=== PATIENT | female | born 1990 | race Caucasian/White ===

== ENCOUNTER 2018-01-02 20:06 | Emergency (ER) | payer BC, OTHER ==
[2018-01-02 20:24] VITALS: O2SAT 98
[2018-01-02] MEDS ORDERED: Sodium Chloride 0.9% 1000 ML 1,000 ML IV STA (21:20)
[2018-01-02 21:40] LABS: Hematocrit 28.8 % (35-47); Hemoglobin 9.4 gm/dl (12.0-16.0); Mean Cell Volume 89.4 fl (78-100); Mean Corpuscular Hgb Concent. 32.6 g/dl (32-36); Mean Platelet Volume 12.4 fl (6-9.5); Platelet Count 191 K/mm3 (150-450); Red Blood Count 3.22 M/mm3 (4.1-5.4); Red Cell Distribution Width 12.5 % (11.5-14.0)
[2018-01-02 21:43] LABS: Mean Corpuscular Hemoglobin 29.1 pg (26-32)
--- NOTE | 2018-01-02 21:43 | ERPHSYRPT ---
- History of Present Illness Time Seen by Provider: 01/02/18 21:40 Historian: patient Exam Limitations: no limitations Patient Subjective Stated Complaint: Left sided Abdominal pain Triage Nursing Assessment: Patient ambulated into ER and transferred self to bed. Patient A+O x3. Patient complains of left sided lower abdominal pain radiating to left side of back. Patient states pain is 9/10. Patient states she thought she was constipated and took a suppository with no relief. Patient's abdomen soft and round with positive BS. Physician History: 27-year-old white female arrives with complaint of sharp left-sided abdominal pain radiating to her left flank which occurred at 6:30 and has now resolved. Patient denies any nausea vomiting diarrhea she states she is not having any urinary symptoms. She does state that she thought that she was constipated and used suppository but this does not seem to been the problem. Past medical history includes a goiter. Past surgical history is negative. Social history patient denies tobacco alcohol or illicit drug use. Timing/Duration: today Activities at Onset: none Quality: sharpness Abdominal Pain Onset Location: [facility] Pain Radiation: flank (left flank) Severity of Pain-Max: moderate Severity of Pain-Current: none Associated Symptoms: No back, No chest pain, No diaphoresis, No diarrhea, No fever/chills, No fatigue, No headache, No heartburn, No loss of appetite, No nausea, No neck pain, No rash, No shortness of breath, No syncope, No vomiting, No weakness Previous symptoms: no prior history Allergies/Adverse Reactions: No Known Drug Allergies Allergy (Verified 01/02/18 20:24) Home Medications: Cetirizine HCl [Zyrtec] 1 tab PO DAILY PRN 01/02/18 [History] Hx Tetanus, Diphtheria Vaccination/Date Given: Yes Hx Influenza Vaccination/Date Given: No Hx Pneumococcal Vaccination/Date Given: No Immunizations Up to Date: Yes - Review of Systems Constitutional: No Fever, No Chills Eyes: No Symptoms Ears, Nose, & Throat: No Symptoms Respiratory: No Cough, No Dyspnea Cardiac: No Chest Pain, No Edema, No Syncope Abdominal/Gastrointestinal: Abdominal Pain, No Nausea, No Vomiting, No Diarrhea Genitourinary Symptoms: Flank Pain (le left flank painft flank pain), No Dysuria , No Frequency, No Hematuria, No Menorrhagia, No , No Vaginal Bleeding , No Vaginal Discharge, No Vaginal Itching Musculoskeletal: No Back Pain, No Neck Pain Skin: No Rash Neurological: No Dizziness, No Focal Weakness, No Sensory Changes Psychological: No Symptoms Endocrine: No Symptoms All Other Systems: Reviewed and Negative - Past Medical History Pertinent Past Medical History: Yes ENT History: Other (allergies) Endocrine Medical History: Other Other Medical History: Goiters - Past Surgical History Past Surgical History: No - Social History Smoking Status: Never smoker Exposure to second hand smoke: No Drug Use: none Patient Lives Alone: Yes - Female History Hx Last Menstrual Period: [place] no period in two weeks Hx Now: No - Nursing Vital Signs Nursing Vital Signs: Initial Vital Signs Temperature 97.8 F 01/02/18 20:12 Pulse Rate 76 01/02/18 20:12 Respiratory Rate 18 01/02/18 20:12 Blood Pressure 144/96 01/02/18 20:12 O2 Sat by Pulse Oximetry 98 01/02/18 20:12 Pain Scale Pain Intensity 9 - Physical Exam General Appearance: no apparent distress, alert Eye Exam: PERRL/EOMI, eyes nml inspection Ears, Nose, Throat Exam: normal ENT inspection, pharynx normal, moist mucous membranes Neck Exam: normal inspection, non-tender, supple, full range of motion Respiratory Exam: normal breath sounds, lungs clear, No respiratory distress Cardiovascular Exam: regular rate/rhythm, normal heart sounds Gastrointestinal/Abdomen Exam: soft, No tenderness, No mass Back Exam: normal inspection, normal range of motion, No CVA tenderness, No vertebral tenderness Extremity Exam: normal inspection, normal range of motion, pelvis stable Neurologic Exam: alert, oriented x 3, cooperative, operations systems specialist II-XII nml as tested, normal mood/affect, nml cerebellar function, sensation nml, No motor deficits Skin Exam: normal color, warm, dry SpO2 Interpretation: normal (98%) SpO2: 98 Oxygen Delivery: Room Air Ordered Tests: Active Orders 24 hr Category Date Time Status IV Insertion STAT Care 01/02/18 21:20 Active AMYLASE Stat Lab 01/02/18 21:35 Completed CBC W DIFF Stat Lab 01/02/18 21:35 Completed CMP Stat Lab 01/02/18 21:35 Completed CULTURE,URINE Stat Lab 01/02/18 21:55 Received HCG QUALITATIVE,SERUM Stat Lab 01/02/18 21:35 Completed LIPASE Stat Lab 01/02/18 21:35 Completed Manual Differential NC Stat Lab 01/02/18 21:35 Completed UA W/RFX UR CULTURE Stat Lab 01/02/18 21:55 Completed Medication Summary Discontinued Medications Generic Name Dose Route Start Last Admin Trade Name Cornelia PRN Reason Stop Dose Admin Sodium Chloride 1,000 mls @ 999 mls/hr 01/02/18 21:20 01/02/18 22:17 Sodium Chloride 0.9% 1000 Ml IV 01/02/18 22:20 999 mls/hr .Q1H1M STA Administration Sodium Chloride Confirm 01/02/18 22:01 Sodium Chloride 0.9% 1000 Ml Administered 01/02/18 22:02 Dose 1,000 mls @ ud .ROUTE .STK-MED ONE Sodium Chloride Confirm 01/02/18 22:08 Sodium Chloride 0.9% 1000 Ml Administered 01/02/18 22:09 Dose 1,000 mls @ ud .ROUTE .STK-MED ONE Lab/Rad Data: Laboratory Result Diagrams 01/02/18 21:35 01/02/18 21:35 Laboratory Results 01/02/18 01/02/18 01/02/18 Range/Units 21:55 21:35 21:35 WBC (4.0-10.5) K/mm3 RBC (4.1-5.4) M/mm3 Hgb (12.0-16.0) gm/dl Hct (35-47) % MCV (78-100) fl MCH (26-32) pg MCHC (32-36) g/dl RDW (11.5-14.0) % Plt Count (150-450) K/mm3 MPV (6-9.5) fl Segmented Neutrophils (36.0-66.0) % Lymphocytes (Manual) (24-44) % Monocytes (Manual) (0.0-12.0) % Platelet Estimate (NORMAL) RBC Morphology Sodium 136 L (137-145) mmol/L Potassium 4.2 (3.5-5.1) mmol/L Chloride 100 (98-107) mmol/L Carbon Dioxide 28 (22-30) mmol/L Anion Gap 12.0 (5-15) MEQ/L BUN 16 (7-17) mg/dL Creatinine 0.66 (0.52-1.04) mg/dL Estimated GFR > 60.0 ML/MIN Glucose 97 (74-106) mg/dL Calcium 9.7 (8.4-10.2) mg/dL Total Bilirubin 0.20 (0.2-1.3) mg/dL AST 22 (14-36) U/L ALT 15 (0-35) U/L Alkaline Phosphatase 66 (38-126) U/L Serum Total Protein 7.0 (6.3-8.2) g/dL Albumin 4.4 (3.5-5.0) g/dL Amylase 59 (30-110) U/L Lipase 78 (23-300) U/L Serum , Qual NEGATIVE (Negative) Urine Color YELLOW (YELLOW) Urine Appearance CLEAR (CLEAR) Urine pH 5.0 (5-6) Ur Specific [place] 1.015 (1.005-1.025) Urine Protein NEGATIVE (Negative) Urine Ketones NEGATIVE (NEGATIVE) Urine Blood 250 (0-5) Jayro/ul Urine Nitrite NEGATIVE (NEGATIVE) Urine Bilirubin NEGATIVE (NEGATIVE) Urine Urobilinogen NORMAL (0-1) mg/dL Ur Leukocyte Esterase TRACE (NEGATIVE) Urine WBC (Auto) 0-2 (0-5) /HPF Urine RBC (Auto) 16-25 (0-2) /HPF U Epithel Cells (Auto) FEW (FEW) /HPF Urine Bacteria (Auto) FEW (NEGATIVE) /HPF Urine Mucus (Auto) SLIGHT (NEGATIVE) /HPF Urine Culture Reflexed YES (NO) Urine Glucose NEGATIVE (NEGATIVE) mg/dL 01/02/ Range/Units 21:35 WBC 8.0 (4.0-10.5) K/mm3 RBC 3.22 L (4.1-5.4) M/mm3 Hgb 9.4 L (12.0-16.0) gm/dl Hct 28.8 L (35-47) % MCV 89.4 (78-100) fl MCH 29.1 (26-32) pg MCHC 32.6 (32-36) g/dl RDW 12.5 (11.5-14.0) % Plt Count 191 (150-450) K/mm3 MPV 12.4 H (6-9.5) fl Segmented Neutrophils 81 H (36.0-66.0) % Lymphocytes (Manual) 15 L (24-44) % Monocytes (Manual) 4 (0.0-12.0) % Platelet Estimate NORMAL (NORMAL) RBC Morphology NORMAL Sodium (137-145) mmol/L Potassium (3.5-5.1) mmol/L Chloride (98-107) mmol/L Carbon Dioxide (22-30) mmol/L Anion Gap (5-15) MEQ/L BUN (7-17) mg/dL Creatinine (0.52-1.04) mg/dL Estimated GFR ML/MIN Glucose (74-106) mg/dL Calcium (8.4-10.2) mg/dL Total Bilirubin (0.2-1.3) mg/dL AST (14-36) U/L ALT (0-35) U/L Alkaline Phosphatase (38-126) U/L Serum Total Protein (6.3-8.2) g/dL Albumin (3.5-5.0) g/dL Amylase (30-110) U/L Lipase (23-300) U/L Serum , Qual (Negative) Urine Color (YELLOW) Urine Appearance (CLEAR) Urine pH (5-6) Ur Specific [place] (1.005-1.025) Urine Protein (Negative) Urine Ketones (NEGATIVE) Urine Blood (0-5) Jayro/ul Urine Nitrite (NEGATIVE) Urine Bilirubin (NEGATIVE) Urine Urobilinogen (0-1) mg/dL Ur Leukocyte Esterase (NEGATIVE) Urine WBC (Auto) (0-5) /HPF Urine RBC (Auto) (0-2) /HPF U Epithel Cells (Auto) (FEW) /HPF Urine Bacteria (Auto) (NEGATIVE) /HPF Urine Mucus (Auto) (NEGATIVE) /HPF Urine Culture Reflexed (NO) Urine Glucose (NEGATIVE) mg/dL - Progress Progress: improved Progress Note: 01/02/18 23:57 27-year-old white female who arrives with complaint that she had sharp left- sided abdominal pain radiating to her left flank symptoms since just prior to arrival. Patient has been completely pain-free since arrival she has normal labs with the exception of 16-25 red cells per high-power field in her urine. She has received 1 L of normal saline. Patient with normal examination since arrival. Will go ahead and release patient. I have informed her of the small amount of blood in her urine I do not feel at this time that a CT of the abdomen is warranted Will discharge patient plenty of fluids Tylenol every 4 hours as needed for pain. Patient is to follow-up with her family doctor return if symptoms are recurrent. . - Departure Time of Disposition: 23:58 Departure Disposition: Home Clinical Impression: Left sided abdominal pain, microcytic hematuria Condition: Fair Critical Care Time: No Referrals: THERESE KAM [Primary Care Provider] - Additional Instructions: Return home. Plenty of fluids. Tylenol every 4 hours or Motrin every 6 hours as needed for pain. Follow-up with your family doctor (you will need yourr urine rechecked to ensure hematuria has cleared). Return or follow-up with your family DrCaprice if problems. Return for acute distress or for severe symptoms.
[2018-01-02] MEDS ORDERED: Sodium Chloride 0.9% 1000 ML 1,000 ML ONE (22:01)
[2018-01-02 22:03] LABS: ALBUMIN 4.4 g/dL (3.5-5.0); ALKALINE PHOSPHATASE 66 U/L (38-126); AMYLASE 59 U/L (30-110); BLOOD UREA NITROGEN 16 mg/dL (7-17); CHLORIDE 100 mmol/L (98-107); Calcium 9.7 mg/dL (8.4-10.2); Carbon Dioxide 28 mmol/L (22-30); Creatinine 1 0.66 mg/dL (0.52-1.04); Glucose 97 mg/dL (74-106); LIPASE 78 U/L (23-300); Potassium 4.2 mmol/L (3.5-5.1); SGOT/AST 22 U/L (14-36); SGPT/ALT 15 U/L (0-35); SODIUM 136 mmol/L (137-145)
[2018-01-02 22:06] LABS: Lymphocytes 15 % (24-44); Monocyte 4 % (0.0-12.0); Neutrophils 81 % (36.0-66.0); Platelet Estimate NORMAL (NORMAL); Total Cells Counted 100
[2018-01-02] MEDS ORDERED: Sodium Chloride 0.9% 1000 ML 0 ML ONE (22:08)
[2018-01-02 22:16] LABS: Appearance CLEAR (CLEAR); Bilirubin NEGATIVE (NEGATIVE); Blood 250 Ery/ul (0-5); Glucose NEGATIVE (NEGATIVE); Ketones NEGATIVE (NEGATIVE); Leukocyte Esterase TRACE (NEGATIVE); Nitrite NEGATIVE (NEGATIVE); Protein,Urine Dip NEGATIVE (Negative); Specific Gravity 1.015 (1.005-1.025); Urobilinogen NORMAL mg/dL (0-1)
[2018-01-03 00:19] VITALS: BP 129/83; PULSE 69
== END 2018-01-03 00:20 | disposition home or self-care (01) ==
LOC: ED 20:06
DX: R10.12 Left upper quadrant pain (principal); R31.9 Hematuria, unspecified
CPT/HCPCS: 36415; 80053; 81001; 82150; 83690; 84703; 85025; 87086; 96360; 99284

== ENCOUNTER 2020-10-21 06:25 | Day surgery (SDC) | payer OTHER ==
[2020-10-21] MEDS ORDERED: Lactated Ringers 1,000 ML IV SCH (06:30)
[2020-10-21] MEDS ORDERED: ASTRINGYN 8 GM TP ONE (06:57)
[2020-10-21] MEDS ORDERED: XYLOCAINE 1%/Epi 1:100000 MDV 20 ML ONE (07:40)
[2020-10-21] MEDS ORDERED: Lactated Ringers 1,000 ML IV ONE (07:45)
[2020-10-21] MEDS ORDERED: SUBLIMAZE 100 MCG/2 ML ONE (08:19)
[2020-10-21] MEDS ORDERED: Decadron 4 MG INJ ONE (08:19)
[2020-10-21] MEDS ORDERED: Versed 2 MG/2 ML Injection ONE (08:19)
[2020-10-21] MEDS ORDERED: Zofran 4 MG/2 ML VIAL ONE (08:19)
[2020-10-21] MEDS ORDERED: Xylocaine-Mpf 2% 5 Ml Vial ONE (08:19)
[2020-10-21] MEDS ORDERED: DIPRIVAN 200 MG/20 ML IV ONE (08:19)
[2020-10-21 09:42] VITALS: O2SAT 99
[2020-10-21 10:09] VITALS: BP 133/78; PULSE 80
--- NOTE | 2020-10-22 09:52 | OP ---
SURGERY DATE/TIME: 10/21/2020 0826 PREOPERATIVE DIAGNOSIS: Severe cervical dysplasia. POSTOPERATIVE DIAGNOSIS: Severe cervical dysplasia. PROCEDURE: Loop electrosurgical excision procedure. SURGEON: Car Pagan D.O. HAND CLOTH CUTTER: Karina Kirkland surgical oncologist. ANESTHESIA: General. ESTIMATED BLOOD LOSS: Minimal. COMPLICATIONS: None. INDICATIONS: The risks, benefits, indications and alternatives of the procedure were reviewed with the patient prior to procedure. The patient understood the risk of infection, bleeding, bowel injury, bladder injury, ureteral injury, uterine perforation, anorgasmia, cervical incompetence associated with this procedure however desires to have this surgery as a possible means to alleviate her current medical condition. DESCRIPTION OF PROCEDURE AND FINDINGS: At this point the patient is taken to the operating room, given general sedation, placed in dorsal lithotomy position. Prepped and draped in the usual sterile fashion. A coated speculum is then placed in the patient's vagina and the cervix was injected circumferentially with 1% lidocaine with epinephrine where at this point was given approximately 10 cc. At this point the loop instrument was then used to excise the ectocervical portion with a left to right motion with depth of 7 to 8 mm of tissue that was excised. Additional excision was made with the endocervical region where an in depth of 2 to 3 mm of endocervical tissue was excised in a similar fashion with a right to left motion. From this point the loop inspector assemblies and installations ball was placed on the surface of the cervix and hemostasis was obtained. From this point all instruments were then removed from the patient's vaginal region. The patient was taken out of the dorsal lithotomy position, was taken out of anesthesia and was then taken to the recovery room in stable condition. All instruments and laps were accounted for x2.
== END 2020-10-21 10:13 | disposition home or self-care (01) ==
LOC: SDC 06:25 → EDSTATUS 12:12
PROVIDERS: ATTEND Obstetrics & Gynecology
DX: D06.9 Carcinoma in situ of cervix, unspecified (principal)
CPT/HCPCS: 84703; J1100; J2250; J2405; J2704; J3010; A9270-GY

== ENCOUNTER 2022-02-22 10:44 | Day surgery (SDC) | payer OTHER ==
[2022-02-22] MEDS ORDERED: Lactated Ringers 1,000 ML IV SCH (11:00)
[2022-02-22] MEDS ORDERED: Xylocaine-Mpf 2% 5 Ml Vial ONE (12:45)
[2022-02-22] MEDS ORDERED: Versed 2 MG/2 ML Injection ONE (12:45)
[2022-02-22] MEDS ORDERED: DIPRIVAN 200 MG/20 ML IV ONE (12:45)
--- NOTE | 2022-02-22 13:39 | OP ---
PROCEDURE DATE/TIME: 02/22/2022 PREOPERATIVE DIAGNOSIS: Bright red blood per rectum. POSTOPERATIVE DIAGNOSIS: Bright red blood per rectum plus external hemorrhoidal disease (moderate) and normal colon. PROCEDURE: Colonoscopy to cecum. PROCEDURE PERFORMED BY: Lynn Martinez M.D. ANESTHESIA: MAC. ESTIMATED BLOOD LOSS: None. COMPLICATIONS: None. SPECIMEN: None. HISTORY: This is a 31-year-old female who presents with bright red blood per rectum here for colonoscopy. Risks, benefits, alternatives, H&P and consent reviewed and confirmed. test was also negative. She has been seen personally. All questions have been answered to her satisfaction and she would like to proceed. DESCRIPTION OF PROCEDURE: She was taken back to endoscopy laid in the left lateral decubitus position. A complete time out performed. First, a perianal inspection and then a rectal exam were performed. The patient has a left anterior and posterior enlarged external hemorrhoids. She has moderate disease. There is no active bleeding. I do not feel any other concerning mass. The scope was then inserted and gently advanced to the level of the cecum. The cecum was normal. Her ileocecal valve and appendiceal orifice were normal. The prep was good. The scope was then withdrawn. We did irrigate the liquid stool and the bubbles that were identified throughout the colon. The entire colon was normal. There was no mass, no diverticulosis and no inflammation. There was no other source of bleeding. The rectum was normal other than the two enlarged external hemorrhoids. She does not have any significantly enlarged internal hemorrhoids at this time and then the scope was completely withdrawn. The patient tolerated the procedure very well. There were no immediate complications. At this time I have recommended a conservative regimen for medical treatment of her external hemorrhoidal disease as well as follow up with me and I have discussed with her friend as she desired regarding her postoperative results as well as the option for surgery. She will follow up with me as an outpatient to determine whether she would like any further surgical intervention. I recommend screening colonoscopy at age 45 and/or per primary care physician.
[2022-02-22 13:54] VITALS: O2SAT 99
[2022-02-22 14:08] VITALS: BP 111/82; PULSE 68
== END 2022-02-22 14:15 | disposition home or self-care (01) ==
LOC: SDC 10:44
PROVIDERS: ATTEND Surgery
DX: K62.5 Hemorrhage of anus and rectum (principal); K64.4 Residual hemorrhoidal skin tags; E11.9 Type 2 diabetes mellitus without complications
CPT/HCPCS: 36415; 82947; 84703; J2250; J2704

== ENCOUNTER 2024-07-15 05:39 | Inpatient (IN) | payer OTHER ==
[2024-07-15 06:23] LABS: AMNISURE TEST RESULTS POSITIVE (NEGATIVE)
[2024-07-15] MEDS ORDERED: STADOL 2 MG IV PRN (06:27)
[2024-07-15] MEDS ORDERED: Nubain 10 MG/ML IV PRN (06:27)
[2024-07-15] MEDS ORDERED: Ephedrine Sulfate 50 MG/ML IV PRN (06:27)
[2024-07-15] MEDS ORDERED: XYLOCAINE 1% HCL 20 ML MDV IJ PRN (06:27)
[2024-07-15] MEDS ORDERED: PITOCIN 30 UNITS/ LR 500 ML 30 UNITS/500 ML PLAST..BAG IV SCH (06:30)
[2024-07-15 06:45] LABS: Appearance HAZY (Clear); Bacteria Few /HPF (None Seen); Epithelial Cells Many /HPF (None Seen); Hyaline Casts NONE SEEN /LPF (0-2); WBC 51-100 /HPF (0-5)
[2024-07-15 06:46] LABS: Amphetamine,Urine NEGATIVE (NEGATIVE); Barbiturate,Urine NEGATIVE (NEGATIVE); Benzodiazepine,Urine NEGATIVE (NEGATIVE); Cocaine,Urine NEGATIVE (NEGATIVE); Ketones Negative (Negative); Leukocyte Esterase Small (Negative); Methadone,Urine NEGATIVE (NEGATIVE); Nitrite Negative (Negative); Opiate,Urine NEGATIVE (NEGATIVE); PCP,Urine NEGATIVE (NEGATIVE); Protein,Urine Dip Negative (Negative); THC,Urine NEGATIVE (NEGATIVE); Urobilinogen 0.2 mg/dL (0.2)
[2024-07-15 06:47] LABS: Bilirubin Negative (Negative); Blood Moderate (Negative); Glucose, Urine Negative (Negative)
[2024-07-15] MEDS: Lactated Ringers 1,000 ML IV ONE (06:49)
[2024-07-15 06:59] LABS: Absolute Neutrophil Ct (ANC) 8.28 x10^3/uL (1.56-6.13); BASOPHIL % 0.5 % (0.1-1.2); Basophil (Absolute #) 0.06 x10^3/uL (0.01-0.08); Eosinophil (Absolute #) 0.22 x10^3/uL (0.04-0.36); Hematocrit 36.1 % (34.1-44.9); Hemoglobin 12.2 g/dL (11.2-15.7); IMMATURE GRAN # 0.07 x10^3u/L (0.001-0.031); IMMATURE GRAN % 0.6 % (0.001-0.429); Lymphocyte (Absolute #) 1.68 x10^3/uL (1.18-3.74); Mean Cell Volume 86.4 fL (79.4-94.8); Mean Corpuscular Hemoglobin 29.2 pg (25.6-32.2); Mean Corpuscular Hgb Concent. 33.8 g/dL (32.2-35.5); Mean Platelet Volume 11.7 fL (9.4-12.3); Monocyte (Absolute #) 0.86 x10^3/uL (0.24-0.86); Monocytes % 7.7 % (4.7-12.5); Neutrophil % 74.2 % (34.0-71.1); Platelet Count 226 x10^3/uL (182-369); Red Blood Count 4.18 x10^6/uL (3.93-5.22); Red Cell Distribution Width 13.3 % (11.7-14.4); White Blood Count 11.2 x10^3/uL (3.98-10.04)
[2024-07-15] MEDS: FENTANYL 2 MCG-BUPIV 0.125%-NS 250 ML Epidur 250 ML EPIDURAL SCH (07:52)
[2024-07-15] MEDS: Lactated Ringers 1,000 ML IV SCH (07:53)
[2024-07-15 07:59] LABS: ABO TYPING O; Antibody Screen NEGATIVE (NEGATIVE); RH TYPING POSITIVE
[2024-07-15] MEDS: Zofran 4 MG/2 ML VIAL IV PRN (08:46)
[2024-07-15] MEDS: PITOCIN 30 UNITS/ LR 500 ML 30 UNITS/500 ML PLAST..BAG IV SCH (09:20)
[2024-07-15] MEDS ORDERED: CORTISONE 1% CREAM ONE (18:05)
[2024-07-15] MEDS: TUCKS TP PRN (18:07)
[2024-07-15] MEDS: LANSINOH 40 GM TOP PRN (18:07)
[2024-07-15] MEDS: Dermoplast Spray TP PRN (18:08)
[2024-07-16] MEDS: MOTRIN 400 MG PO PRN (01:20)
[2024-07-16] MEDS: Docusate Sodium 100 MG PO SCH (01:44)
[2024-07-16 05:24] LABS: Absolute Neutrophil Ct (ANC) 10.27 x10^3/uL (1.56-6.13); BASOPHIL % 0.4 % (0.1-1.2); Basophil (Absolute #) 0.06 x10^3/uL (0.01-0.08); Eosinophil % 1.3 % (0.7-5.8); Eosinophil (Absolute #) 0.18 x10^3/uL (0.04-0.36); Hematocrit 33.1 % (34.1-44.9); IMMATURE GRAN % 0.7 % (0.001-0.429); Lymphocyte (Absolute #) 2.14 x10^3/uL (1.18-3.74); Lymphocytes % 15.5 % (19.3-51.7); Mean Corpuscular Hemoglobin 29.6 pg (25.6-32.2); Mean Corpuscular Hgb Concent. 33.2 g/dL (32.2-35.5); Mean Platelet Volume 11.6 fL (9.4-12.3); Monocyte (Absolute #) 1.04 x10^3/uL (0.24-0.86); Monocytes % 7.5 % (4.7-12.5); Neutrophil % 74.6 % (34.0-71.1); Platelet Count 217 x10^3/uL (182-369); Red Blood Count 3.72 x10^6/uL (3.93-5.22); Red Cell Distribution Width 13.9 % (11.7-14.4); White Blood Count 13.8 x10^3/uL (3.98-10.04)
[2024-07-16] MEDS: FERREX 150 PO SCH (08:22)
--- NOTE | 2024-07-16 09:14 | PCM.NOTE ---
Date and Time: 07/16/24911 Subjective Assessment: ppd 1 sp pt resting in bed and doing well without complaints vss afebrile abd; soft uterus; firm lochia; mild a/p sp ppd 1 doing well anticipate discharge tomorrow Objective Data Vital Signs: Vital Signs - 24 hr Temp Pulse Resp BP BP Pulse Ox 07/16/24 01:46 98.0 F 94 H 20 112/67 98 07/15/24 20:00 99.0 F 108 H 18 115/56 99 07/15/24 18:30 97.8 F 112 H 20 105/57 99 07/15/24 17:30 97.8 F 103 H 20 112/75 99 07/15/24 17:00 97.8 F 106 H 20 116/73 99 07/15/24 16:30 97.8 F 100 H 20 118/64 99 07/15/24 16:15 97.8 F 101 H 20 129/80 99 07/15/24 16:00 97.8 F 100 H 20 120/65 97 07/15/24 15:45 97.8 F 105 H 20 118/68 97 07/15/24 15:30 97.8 F 104 H 20 112/59 98 07/15/24 15:01 97.8 F 93 H 20 122/75 07/15/24 14:45 97.8 F 96 H 20 125/77 98 07/15/24 14:30 97.8 F 96 H 20 114/56 98 07/15/24 14:15 97.8 F 97 H 20 129/59 98 07/15/24 14:00 97.8 F 95 H 20 155/71 155/71 99 07/15/24 13:45 97.8 F 90 20 131/67 99 07/15/24 13:30 97.8 F 90 20 124/62 99 07/15/24 13:15 97.8 F 94 H 20 120/59 99 07/15/24 13:00 97.4 F 86 20 115/65 98 07/15/24 12:45 97.4 F 100 H 20 120/65 97 07/15/24 12:30 97.4 F 95 H 20 113/55 98 07/15/24 12:15 97.4 F 87 20 117/56 97 07/15/24 12:00 97.4 F 84 20 113/66 07/15/24 11:45 97.4 F 93 H 20 139/83 07/15/24 11:30 97.4 F 93 H 20 118/72 07/15/24 11:15 97.4 F 76 20 89/53 98 07/15/24 11:00 97.4 F 75 20 88/54 98 07/15/24 10:45 97.6 F 75 20 92/50 99 07/15/24 10:30 97.6 F 80 20 109/62 98 07/15/24 10:15 97.6 F 88 20 110/55 98 07/15/24 10:00 97.6 F 87 20 110/63 110/69 98 07/15/24 09:45 97.8 F 100 H 20 95/52 99 07/15/24 09:30 97.6 F 88 20 99/55 96 07/15/24 09:15 97.6 F 85 20 99/55 97 Pain Assessment - Last Documented Pain Intensity [Lower] 7 Pain Intensity 4 Pain Scale Used 0-10 Pain Scale Intake and Output: Intake & Output 07/13/24 07/14/24 07/15/24 07/16/24 11:59 11:59 11:59 11:59 Intake Total 1500 Output Total 150 550 Balance 1350 -550 Weight 105.687 kg 105.687 kg Lab Results: Lab Results-Last 24 Hours 07/16/24 Range/Units 05:10 WBC 13.8 H (3.98-10.04) x10^3/uL RBC 3.72 L (3.93-5.22) x10^6/uL Hgb 11.0 L (11.2-15.7) g/dL Hct 33.1 L (34.1-44.9) % MCV 89.0 (79.4-94.8) fL MCH 29.6 (25.6-32.2) pg MCHC 33.2 (32.2-35.5) g/dL RDW 13.9 (11.7-14.4) % Plt Count 217 (182-369) x10^3/uL MPV 11.6 (9.4-12.3) fL Gran % 74.6 H (34.0-71.1) % Immature Gran % (Auto) 0.7 H (0.001-0.429) % Nucleat RBC Rel Count 0.0 (0.00-0.2) % Eos # (Auto) 0.18 (0.04-0.36) x10^3/uL Immature Gran # (Auto) 0.10 H (0.001-0.031) x10^3u/L Absolute Lymphs (auto) 2.14 (1.18-3.74) x10^3/uL Absolute Monos (auto) 1.04 H (0.24-0.86) x10^3/uL Absolute Nucleated RBC 0.00 (0.00-0.012) x10^3u/L Lymphocytes % 15.5 L (19.3-51.7) % Monocytes % 7.5 (4.7-12.5) % Eosinophils % 1.3 (0.7-5.8) % Basophils % 0.4 (0.1-1.2) % Absolute Granulocytes 10.27 H (1.56-6.13) x10^3/uL Basophils # 0.06 (0.01-0.08) x10^3/uL Medications: Medications Generic Name Dose Route Start Last Admin Trade Name Freq PRN Reason Stop Dose Admin Acetaminophen 1,000 mg 07/15/24 06:27 Acetaminophen 500 Mg Tablet PO 08/14/24 06:26 Q4H PRN PRN HEADACHE/MILD PAIN/ FEVER Benzocaine 40 gm 07/15/24 15:36 07/15/24 18:08 Benzocaine/Lanolin/Aloe Vera 85 Gm Can TP 08/14/24 15:35 85 gm UD PRN Administration laceration Butorphanol Tartrate 1 mg 07/15/24 06:27 Butorphanol Tartrate 2 Mg/Ml Vial IV 08/14/24 06:26 Q4H PRN PRN MODERATE PAIN Docusate Sodium 100 mg 07/15/24 22:00 07/16/24 08:22 Docusate Sodium 100 Mg Capsule PO 08/14/24 21:59 100 mg BID MACK Administration Emollient Ointment 0 gm 07/15/24 15:36 07/15/24 18:07 Lansinoh 40 Gm Tube TOP 08/14/24 15:35 40 gm PRN PRN Administration PAIN Ephedrine Sulfate 10 mg 07/15/24 06:27 Ephedrine Sulfate 50 Mg/Ml IV 08/14/24 06:26 PRN PRN SBP<100 FENTANYL/BUPIVACAINE/NS/PF 250 mls @ 0 mls/hr 07/15/24 06:30 07/15/24 07:52 Fentanyl 2 Mcg-Bupiv 0.125%-Ns 250 Ml Epidur EPIDURAL 08/14/24 06:29 12 mls /hr .Q0M MACK Administration Protocol Titrate Lactated Ringer's 1,000 mls @ 125 mls/hr 07/15/24 06:30 07/15/24 12:29 Lactated Ringers IV 08/14/24 06:29 125 mls/hr .Q8H MACK Administration Oxytocin/Lactated Ringer's 30 units in 500 mls @ 5 mls/hr 07/15/24 06:30 Pitocin 30 Units/ Lr 500 Ml IV 08/14/24 06:29 .Q24H MACK Oxytocin/Lactated Ringer's 30 units in 500 mls @ 0 mls/hr 07/15/24 10:00 07/15/24 09:20 Pitocin 30 Units/ Lr 500 Ml IV 08/14/24 09:59 2 mls/hr .Q0M MACK Administration Protocol Titrate Ibuprofen 800 mg 07/15/24 15:36 07/16/24 08:21 Ibuprofen 400 Mg Tablet PO 08/14/24 15:35 800 mg Q6H PRN PRN Administration MODERATE PAIN Lidocaine HCl 10 ml 07/15/24 06:27 Lidocaine Hcl 1% 20 Ml Mdv 20 Ml Ml IJ 08/14/24 06:26 PRN PRN labor Nalbuphine HCl 5 - 10 mg 07/15/24 06:27 Nalbuphine Hcl 10 Mg/Ml Ampul IV 08/14/24 06:26 Q4H PRN PRN PAIN Ondansetron HCl 4 mg 07/15/24 06:27 07/15/24 08:46 Ondansetron Hcl 4 Mg/2 Ml Vial IV 08/14/24 06:26 4 mg Q4H PRN PRN Administration NAUSEA/VOMITING Polysaccharide Iron Complex 150 mg 07/16/24 10:00 07/16/24 08:22 Iron Polysaccharides Complex 150 Mg Capsule PO 08/15/24 09:59 150 mg DAILY MACK Administration Witch Juany 1 pad 07/15/24 15:36 07/15/24 18:07 Nhi Harrington 1 Pad Med..Pad TP 08/14/24 15:35 1 pad PRN PRN Administration ITCHING Discontinued Medications Generic Name Dose Route Start Last Admin Trade Name Marcinq PRN Reason Stop Dose Admin Hydrocortisone Confirm 07/15/24 18:05 Hydrocortisone 1% Cream 28 Gm Tube Administered 07/15/24 18:06 Dose 28 gm .ROUTE .STK-MED ONE Lactated Ringer's 1,000 mls @ 999 mls/hr 07/15/24 06:27 07/15/24 06:49 Lactated Ringers IV 07/15/24 07:27 999 mls/hr .Q1H1M ONE Administration
[2024-07-16] MEDS: CORTISONE 1% CREAM TP PRN (14:18)
[2024-07-17 02:41] VITALS: TEMP 97.6
[2024-07-17 07:06] LABS: RPR Non Reactive (Non Reactive)
--- NOTE | 2024-07-17 10:36 | PCM.NOTE ---
Date and Time: 07/17/24 1034 Subjective Assessment: ppd 2 sp pt resting in bed and doing well able to ambulate and tolerate diet vss afebrile abd; soft uterus; firm lochia; mild a/p sp ppd 2 dc home today should fu in office in 3 wks Objective Data Vital Signs: Vital Signs - 24 hr Temp Pulse Resp BP Pulse Ox 07/17/24 02:40 97.6 F 88 18 107/57 100 07/16/24 20:53 97.4 F 89 18 105/53 97 07/16/24 15:00 98.0 F 96 H 20 109/70 95 Pain Assessment - Last Documented Pain Intensity [Lower] 4 Pain Intensity 4 Pain Scale Used 0-10 Pain Scale Intake and Output: Intake & Output 07/14/24 07/15/24 07/16/24 07/17/24 11:59 11:59 11:59 11:59 Intake Total 1500 200 Output Total 150 550 Balance 1350 -350 Weight 105.687 kg 105.687 kg Lab Results: Lab Results-Last 24 Hours 07/15/24 Range/Units 06:46 RPR Non Reactive (Non Reactive) Medications: Medications Generic Name Dose Route Start Last Admin Trade Name Freq PRN Reason Stop Dose Admin Acetaminophen 1,000 mg 07/15/24 06:27 Acetaminophen 500 Mg Tablet PO 08/14/24 06:26 Q4H PRN PRN HEADACHE/MILD PAIN/ FEVER Benzocaine 40 gm 07/15/24 15:36 07/15/24 18:08 Benzocaine/Lanolin/Aloe Vera 85 Gm Can TP 08/14/24 15:35 85 gm UD PRN Administration laceration Butorphanol Tartrate 1 mg 07/15/24 06:27 Butorphanol Tartrate 2 Mg/Ml Vial IV 08/14/24 06:26 Q4H PRN PRN MODERATE PAIN Docusate Sodium 100 mg 07/15/24 22:00 07/17/24 02:44 Docusate Sodium 100 Mg Capsule PO 08/14/24 21:59 Not Given BID MACK Emollient Ointment 0 gm 07/15/24 15:36 07/15/24 18:07 Lansinoh 40 Gm Tube TOP 08/14/24 15:35 40 gm PRN PRN Administration PAIN Ephedrine Sulfate 10 mg 07/15/24 06:27 Ephedrine Sulfate 50 Mg/Ml IV 08/14/24 06:26 PRN PRN SBP<100 Hydrocortisone 0.5 gm 07/16/24 13:26 07/16/24 14:18 Hydrocortisone 1% Cream 28 Gm Tube TP 08/15/24 13:25 0.5 gm PRN PRN Administration ITCHING FENTANYL/BUPIVACAINE/NS/PF 250 mls @ 0 mls/hr 07/15/24 06:30 07/15/24 07:52 Fentanyl 2 Mcg-Bupiv 0.125%-Ns 250 Ml Epidur EPIDURAL 08/14/24 06:29 12 mls/hr .Q0M MACK Administration Protocol Titrate Lactated Ringer's 1,000 mls @ 125 mls/hr 07/15/24 06:30 07/15/24 12:29 Lactated Ringers IV 08/14/24 06:29 125 mls/hr .Q8H MACK Administration Oxytocin/Lactated Ringer's 30 units in 500 mls @ 5 mls/hr 07/15/24 06:30 Pitocin 30 Units/ Lr 500 Ml IV 08/14/24 06:29 .Q24H MACK Oxytocin/Lactated Ringer's 30 units in 500 mls @ 0 mls/hr 07/15/24 10:00 07/15/24 09:20 Pitocin 30 Units/ Lr 500 Ml IV 08/14/24 09:59 2 mls/hr .Q0M MACK Administration Protocol Titrate Ibuprofen 800 mg 07/15/24 15:36 07/17/24 07:38 Ibuprofen 400 Mg Tablet PO 08/14/24 15:35 800 mg Q6H PRN PRN Administration MODERATE PAIN Lidocaine HCl 10 ml 07/15/24 06:27 Lidocaine Hcl 1% 20 Ml Mdv 20 Ml Ml IJ 08/14/24 06:26 PRN PRN labor Nalbuphine HCl 5 - 10 mg 07/15/24 06:27 Nalbuphine Hcl 10 Mg/Ml Ampul IV 08/14/24 06:26 Q4H PRN PRN PAIN Ondansetron HCl 4 mg 07/15/24 06:27 07/15/24 08:46 Ondansetron Hcl 4 Mg/2 Ml Vial IV 08/14/24 06:26 4 mg Q4H PRN PRN Administration NAUSEA/VOMITING Polysaccharide Iron Complex 150 mg 07/16/24 10:00 07/16/24 08:22 Iron Polysaccharides Complex 150 Mg Capsule PO 08/15/24 09:59 150 mg DAILY MACK Administration Witaugustine Harrington 1 pad 07/15/24 15:36 07/16/24 16:29 Nhi Harrington 1 Pad Med..Pad TP 08/14/24 15:35 1 pad PRN PRN Administration ITCHING Discontinued Medications Generic Name Dose Route Start Last Admin Trade Name Freq PRN Reason Stop Dose Admin Hydrocortisone Confirm 07/15/24 18:05 Hydrocortisone 1% Cream 28 Gm Tube Administered 07/15/24 18:06 Dose 28 gm .ROUTE .STK-MED ONE Lactated Ringer's 1,000 mls @ 999 mls/hr 07/15/24 06:27 07/15/24 06:49 Lactated Ringers IV 07/15/24 07:27 999 mls/hr .Q1H1M ONE Administration Assessment/Plan (1) Vaginal delivery Current Visit: Yes Status: Acute Code(s): O80 - ENCOUNTER FOR FULL-TERM UNCOMPLICATED DELIVERY
--- NOTE | 2024-07-17 10:39 | PCM.DS ---
Discharge Summary Date of Admission: 07/15/24 05:39 Admitting Physician: JUDAH DELACRUZ DO Consults: Consults on Case 07/15/24 06:28 Notify Anesthesia Provider PRN 07/15/24 19:24 Navigation ONCE Primary Care Provider: NAGA BETANCUR DO Allergies Allergies No Known Drug Allergies Allergy (Verified 02/22/22 11:07) Hospital Summary - Hospital Course Hospital Course: pt admitted on july 15 at 37 2/7 wks gestation for srom and in labor upon admission and was noted being 4cm upon admission with ruptured membrane and positive amnisure. pt received her epidural and progressed adequately and delivered live baby boy without complication with 1st degree vaginal tear repaired wih 2-0 chromic suture. during period did well with stable vitals and stable hgb at 9.7 . pt at this time stable for discharge and was advised to fu in office in 3 wks. all questions answered to her satisfaction and was also advised to call me for any issues that may arise upon discharge. - Vitals & Intake/Output Vital Signs: Vital Signs Temperature 97.6 F 07/17/24 02:40 Pulse Rate 88 07/17/24 02:40 Respiratory Rate 18 07/17/24 02:40 Blood Pressure 107/57 07/17/24 02:40 O2 Sat by Pulse Oximetry 100 07/17/24 02:40 Intake & Output: Intake & Output 07/14/24 07/15/24 07/16/24 07/17/24 11:59 11:59 11:59 11:59 Intake Total 1500 200 Output Total 150 550 Balance 1350 -350 Weight 105.687 kg 105.687 kg - Lab Result Diagrams: 07/16/24 05:10 Lab Results-Last 24 Hrs: Lab Results-Last 24 Hours 07/15/24 Range/Units 06:46 RPR Non Reactive (Non Reactive) Micro Results-Entire Visit: Microbiology 07/15/24 06:04 Urine Culture - Final Clean Catch Midstream NO GROWTH Final Diagnosis/Problem List - Final Discharge Diagnosis/Problem (1) Vaginal delivery Current Visit: Yes Status: Acute Code(s): O80 - ENCOUNTER FOR FULL-TERM UNCOMPLICATED DELIVERY - Discharge Disposition: Home, Self-Care Condition: Stable Prescriptions: No Action Sertraline HCl 50 mg [Zoloft 50 mg Tablet] 50 mg PO DAILY Multivitamin/Iron/Folic Acid [Centrum Women Tablet] 1 tab PO DAILY Cetirizine HCl [Zyrtec] 10 mg PO DAILY Follow up with: NAGA BETANCUR DO [Primary Care Provider, FAMILY PRACTICE] JUDAH DELACRUZ DO [ACTIVE STAFF, OBSTETRICS-GYNECOLOGY] - 3 weeks
[2024-07-17] MEDS: TYLENOL EXTRA STRENGTH 500 MG PO PRN (11:52)
[2024-07-17 12:26] VITALS: O2SAT 96
[2024-07-17 19:15] VITALS: BP 120/80; PULSE 85; RESP 18
== END 2024-07-17 18:25 | disposition home or self-care (01) | DRG 807 ==
LOC: OBSVTOIN 05:39 → OB 05:39
PROVIDERS: ADMIT Obstetrics & Gynecology; ATTEND Obstetrics & Gynecology
PROC: 10E0XZZ Delivery of Products of Conception, External Approach (ICD-10-PCS; principal; 2024-07-15)
PROC: 0HQ9XZZ Repair Perineum Skin, External Approach (ICD-10-PCS; 2024-07-15)
DX: O70.0 First degree perineal laceration during delivery (principal); Z37.0 Single live birth; Z3A.37 37 weeks gestation of pregnancy
CPT/HCPCS: 36415; 59400; 80307; 81001; 84112; 85025; 86592; 86850; 86900; 86901; 87086; J2405; J2590; A9270-GY